=== PATIENT | female | born 1975 | race Two or more races ===

== ENCOUNTER 2022-01-26 12:56 | Emergency (ER) | payer OTHER ==
[~2022-01-26] VITALS: Ht 170.2 cm; Wt 77.1 kg
--- NOTE | 2022-01-26 13:10 | NUR ---
REceved pt 46 yrs femal accompany by colette dahl/p fell down at around 1200 one HR AGO C/O PAIN AND SWALLEN ON LT WRIST DIFFORMITY AND SKIN ABRATION ON LT KNEE
--- NOTE | 2022-01-26 13:16 | NUR ---
INDUSTRIAL THERAPIST AT BEDSIDE
--- NOTE | 2022-01-26 13:19 | NUR ---
X RAY DONE AT BED SIDE
--- NOTE | 2022-01-26 13:29 | NUR ---
WATING TO BE SEEN
[2022-01-26] MEDS ORDERED: LIDOCAINE /MPF 1% VIAL 5 ML VIAL ONE (14:00)
[2022-01-26] MEDS ORDERED: LIDOCAINE HCL/PF 1% 30 ML VIAL IJ ONE (14:00)
[2022-01-26] MEDS ORDERED: LIDOCAINE 1% INJ 50 ML MDV IJ ONE (14:02)
--- NOTE | 2022-01-26 14:15 | NUR ---
DR. CHRISTIANSEN AT BED SIDE ANNA AT BED SIDE XYLOCAINE MPF 1% APPLED ABOUT 4ML ON LT WRIST AND REDUCED OVER LT WRIST AND SPENT APPED BY ED TACH WITH LT ARM SLEANG
[2022-01-26] MEDS ORDERED: OXYC5CAP18 PO (14:23)
--- NOTE | 2022-01-26 14:34 | NUR ---
Patient discharged to home in stable condition. Written and verbal after care instructions given. Patient verbalizes understanding of instruction.
--- NOTE | 2022-01-26 14:52 | NUR ---
PT PROVIDED WITH CD OF X RAY IMAGING
[2022-01-26 14:53] VITALS: BP 126/82
== END 2022-01-26 14:53 | disposition home or self-care (01) ==
LOC: ER 13:03
DX: S52.532A Colles' fracture of left radius, initial encounter for closed fracture (principal); Z79.899 Other long term (current) drug therapy; W01.0XXA Fall on same level from slipping, tripping and stumbling without subsequent striking against object, initial encounter; Y93.89 Activity, other specified; Y92.89 Other specified places as the place of occurrence of the external cause; Y99.8 Other external cause status
CPT/HCPCS: 25605; 73110 ×2; 99285; A6403; J3490 ×2